=== PATIENT | male | born 1960 ===

== ENCOUNTER 2017-12-20 18:16 | Emergency (ER) | payer OTHER, BC ==
[2017-12-20 18:22] VITALS: BP 109/73; PULSE 72; RESP 18; TEMP 98.2; O2SAT 99
[2017-12-20] MEDS ORDERED: Bacitracin 500 Units/gm Oint Foilpak UD TOP ONE (19:29)
[2017-12-20] MEDS ORDERED: Lidocaine 1% Inj (20ml) INFIL STA (19:29)
[2017-12-20] MEDS ORDERED: Bacitracin 500 Units/gm Oint Foilpak UD ONE ×2 (19:42→20:26)
[2017-12-20] MEDS ORDERED: Lidocaine Hydrochloride 10 ML INJ ONE (19:42)
--- NOTE | 2017-12-20 19:46 | C.PDOC ---
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 Denies weakness or numbness. Time Seen by Provider: 12/20/17 19:25 Chief Complaint (Nursing): Finger,Hand,&Wrist History Per: Patient History/Exam Limitations: no limitations Onset/Duration Of Symptoms: Hrs Current Symptoms Are (Timing): Still Present Recent travel outside of the [place]: No Past Medical History Reviewed: Historical Data, Nursing Documentation, Vital Signs Vital Signs: Last Vital Signs Temp 98.2 F 12/20/17 18:18 Pulse 72 12/20/17 18:18 Resp 18 12/20/17 18:18 BP 109/73 12/20/17 18:18 Pulse Ox 99 12/20/17 21:21 - Medical History PMH: No Chronic Diseases Surgical History: No Surg Hx Family History: States: Unknown Family Hx - Social History Hx Alcohol Use: No Hx Substance Use: No - Immunization History Hx Tetanus Toxoid Vaccination: Yes (2 YEARS AGO) Hx Influenza Vaccination: Yes Hx Pneumococcal Vaccination: No Review Of Systems Musculoskeletal: Positive for: Hand Pain Skin: Positive for: Other (Laceration, Abrasions) Neurological: Negative for: Weakness, Numbness Physical Exam - Physical Exam Appears: Non-toxic, No Acute Distress Skin: Warm, Dry Head: Atraumatic, Normacephalic Eye(s): bilateral: Normal Inspection, EOMI Neck: Normal ROM Chest: Symmetrical Extremity: Normal ROM (x4), Capillary Refill (<2 seconds), Other (Superficial abrasions to right 2nd, 3rd, and 4th fingers. 1cm irregular laceration to right 5th volar fingertip) Pulses: Left Radial: Normal, Right Radial: Normal Neurological/Psych: Oriented x3, Normal Speech, Normal Motor, Normal Sensation ED Course And Treatment O2 Sat by Pulse Oximetry: 99 (Room air) Pulse Ox Interpretation: Normal - Other Rad Right hand x-ray X-Ray: Interpreted by Me, Viewed By Me Interpretation: No acute fractures or dislocations. Laceration - Laceration Repair right pinky Wound Length (In cm): 1.5 Description Of Wound: Irregular Wound Cleansed With: Betadine, Sterile Saline Anesthesia: Lidocaine 1% Wound Examination: Irrigated With Saline, No FB With Wound Exploration, No Tendon Injury With Wound Exploration Wound Closure: Suture Suture Technique And Material Used: Interrupted (3), Nylon (4-0) Wound Complexity: Simple Medical Decision Making Medical Decision Making: Right hand x-ray ordered and viewed by me showing no acute fractures. Patient tolerated laceration repair without any difficulty, bacitracin and dressing applied. Patient instructed on proper wound care and advised to follow up for wound check. Disposition Counseled Patient/Family Regarding: Diagnosis, Need For Followup - Disposition [facility]Outside[facility] Disposition: HOME/ ROUTINE Disposition Time: 20:11 Condition: GOOD Additional Instructions: Remove dressing in 24 hours. May wash gently with soap and water, do not use alcohol or iodine solution. Change dressing 1-2 times daily. Return to ER if fever occurs, redness or swelling around wound, pus in the wound. Please follow up with your primary doctor, clinic, or urgent care for suture removal in 10 days Instructions: Laceration Repair, Wound Care (DC) Forms: [employer] (Lithuanian) - POA Present On Arrival: None - Clinical Impression Clinical Impression: Contusion of hand including fingers, Abrasion of finger, Laceration of finger - PA / OPTICAL SCIENTIST / Resident Statement MD/DO has reviewed & agrees with the documentation as recorded. - Scribe Statement The provider has reviewed the documentation as recorded by the Arelisibtessie Garcia All medical record entries made by the Arelisibtessie were at my direction and personally dictated by me. I have reviewed the chart and agree that the record accurately reflects my personal performance of the history, physical exam, medical decision making, and the department course for this patient. I have also personally directed, reviewed, and agree with the discharge instructions and disposition.
--- NOTE | 2017-12-21 11:04 | RAD ---
PROCEDURE: HISTORY: pain s.p injury with crate falling on distal hand COMPARISON: None. FINDINGS: BONES: No fracture identified. JOINTS: No dislocation seen. Bony articulations appear maintained. SOFT TISSUE: Soft tissue swelling noted at the 2nd and 5th distal phalanx. OTHER FINDINGS: None. IMPRESSION: No fracture or dislocation identified.
== END 2017-12-20 20:37 | disposition home or self-care (01) ==
LOC: C.ER 18:16
DX: S61.216A Laceration without foreign body of right little finger without damage to nail, initial encounter (principal); S60.221A Contusion of right hand, initial encounter; S60.410A Abrasion of right index finger, initial encounter; S60.412A Abrasion of right middle finger, initial encounter; S60.414A Abrasion of right ring finger, initial encounter; W45.8XXA Other foreign body or object entering through skin, initial encounter; Y92.89 Other specified places as the place of occurrence of the external cause; Y99.0 Civilian activity done for income or pay